=== PATIENT | female | born 1995 | race Caucasian/White ===

== ENCOUNTER 2017-08-08 10:00 | Emergency (ER) | payer SELFPAY ==
[~2017-08-08] VITALS: Ht 162.6 cm; Wt 55.0 kg
[2017-08-08 16:52] VITALS: BP 129/71
== END 2017-08-08 16:53 | disposition home or self-care (01) ==
LOC: ER 10:24
DX: Z76.89 Persons encountering health services in other specified circumstances (principal); Z87.891 Personal history of nicotine dependence
CPT/HCPCS: 99283; Z7610